=== PATIENT | female | born 1945 | race Caucasian/White ===

== ENCOUNTER 2017-04-08 19:31 | Emergency (ER) | payer OTHER ==
[2017-04-08] MEDS ORDERED: SODIUM CHLORIDE 0.9% 1000ML 1,000 ML IV ONE (19:40)
[2017-04-08 19:43] VITALS: TEMP 98.3
[2017-04-08 19:51] LABS: BASOPHILS % (AUTO) 0 % (0-3); EOSINOPHILS % (AUTO) 0 % (0-9); HEMATOCRIT 34 % (35-47); MEAN CORPUSCULAR HGB CONC 32.2 gm/dl (32.0-36.0); MONOCYTES % (AUTO) 2.8 % (0-12); NEUTROPHILS % (AUTO) 94.4 % (37-80)
[2017-04-08 19:53] LABS: MEAN CORPUSCULAR VOLUME 80 fL (81-99)
[2017-04-08 20:16] LABS: ALBUMIN 3.2 gm/dl (3.4-5.0); CALCIUM 8.5 mg/dl (8.5-10.1); POTASSIUM 5.1 mMol/L (3.5-5.1)
[2017-04-08 20:38] VITALS: RESP 20
[2017-04-08 21:32] VITALS: BP 123/58; PULSE 87; O2SAT 96
== END 2017-04-08 21:28 | DRG 392 ==
LOC: ED 19:31
DX: A08.4 Viral intestinal infection, unspecified (principal); J06.9 Acute upper respiratory infection, unspecified
CPT/HCPCS: 71045; 80053; 85025; 87804; 99283

== ENCOUNTER 2017-07-01 18:09 | Observation (INO) | payer OTHER ==
[2017-07-01 19:08] LABS: BASOPHILS % (AUTO) 1 % (0-3); EOSINOPHILS % (AUTO) 0 % (0-9); HEMATOCRIT 31 % (35-47); HEMOGLOBIN 9.9 gm/dl (12.0-15.5); LYMPHOCYTES % (AUTO) 5.41 % (10-50); MEAN CORPUSCULAR HEMOGLOBIN 25.2 pg (27.0-32.0); MEAN CORPUSCULAR HGB CONC 31.8 gm/dl (32.0-36.0); MONOCYTES % (AUTO) 7.5 % (0-12); NEUTROPHILS % (AUTO) 86.5 % (37-80)
[2017-07-01 19:15] LABS: ALBUMIN 3.5 gm/dl (3.4-5.0); ALKALINE PHOSPHATASE 61 IU/L (46-116); ALT 17 IU/L (14-63); AST 20 IU/L (15-37); BILIRUBIN,TOTAL 0.6 mg/dl (0.2-1.0); BLOOD UREA NITROGEN 24 mg/dl (7-18); CALCIUM 8.4 mg/dl (8.5-10.1); CARBON DIOXIDE 29.6 mEq/L (21-32); CHLORIDE 98 mMol/L (98-107); CREATININE 1.51 mg/dl (0.60-1.00); GLOM FILT RATE 34 mL/min (>60); GLUCOSE 137 mg/dl (74-106); POTASSIUM 4.3 mMol/L (3.5-5.1); SODIUM 136 mMol/L (136-145); TOTAL PROTEIN 7.4 gm/dl (6.4-8.2); TROP I < 0.017 ng/ml (0.000-0.056)
[2017-07-01 19:25] LABS: MEAN CORPUSCULAR VOLUME 79 fL (81-99)
[2017-07-01 20:03] LABS: APPEARANCE,URINE Slightly Cloudy; BILIRUBIN,URINE NEGATIVE (NEGATIVE); COLOR,URINE Yellow; GLUCOSE, URINE (UA) NEGATIVE (NEGATIVE); KETONES,URINE TRACE (NEGATIVE); LEUKOCYTE ESTERASE ,URINE NEGATIVE (NEGATIVE); NITRATE,URINE NEGATIVE (NEGATIVE); OCCULT BLOOD,URINE NEGATIVE (NEG-TRACE); PH,URINE 5.5; UROBILINOGEN,URINE 0.2 (0.2-1.0 EU)
[2017-07-01 20:16] LABS: BACTERIA 1+ (< 1+); CRYSTALS NEGATIVE (0-3 AVE/HPF); RBC,URINE 0-1 (0-3AV/HPF)
[2017-07-01] MEDS ORDERED: SODIUM CHLORIDE 0.9% 500 ML 500 ML IV ONE (20:28)
[2017-07-01] MEDS ORDERED: SOLUMEDROL 125 MG/2 ML 125 MG/2 ML PDS IV ONE (20:49)
[2017-07-01] MEDS ORDERED: AZITHROMYCIN 500 MG PDS 500 MG in SODIUM CHLORIDE 0.9% 500 ML 500 ML IV ONE (20:49)
[2017-07-01] MEDS: SODIUM CHLORIDE 0.9% 1000ML 1,000 ML IV SCH (20:55)
[2017-07-01] MEDS ORDERED: SOLUMEDROL 125 MG/2 ML 125 MG/2 ML PDS ONE (20:56)
[2017-07-01] MEDS ORDERED: AZITHROMYCIN 500 MG PDS IV ONE (20:56)
[2017-07-01] MEDS ORDERED: ACETAMINOPHEN 500 MG 500 MG TAB PO PRN (21:35)
[2017-07-01] MEDS ORDERED: ALBUTEROL NEB SOL 2.5MG/3ML 1 VIAL SOL NEB PRN (21:39)
[2017-07-02] MEDS ORDERED: AMOXIL/CLAVULANATE 400/5 ML PDR ONE (00:35)
[2017-07-02] MEDS: ACETAMINOPHEN 500 MG 500 MG TAB PO SCH ×2 (00:53→20:13)
[2017-07-02] MEDS: BUSPIRONE HCL 5 MG TAB PO SCH ×4 (00:54→20:11)
[2017-07-02] MEDS: AUGMENTIN(FRIDGE) 400 MG/5 ML PO SCH ×3 (00:54→22:53)
[2017-07-02] MEDS: SODIUM CHLORIDE 0.9% 1000ML 500 ML IV SCH (02:13)
[2017-07-02] MEDS: SODIUM CHLORIDE 0.9% 1000ML 1,000 ML IV SCH ×3 (03:49→20:47)
[2017-07-02] MEDS ORDERED: VITAMIN D3 PO SCH (09:00)
[2017-07-02] MEDS ORDERED: METFORMIN HYDROCHLORIDE 500 MG TAB PO SCH ×2 (09:00→18:00)
[2017-07-02] MEDS ORDERED: AMOXIL/CLAVULANATE 875/125 TAB PO SCH (09:00)
[2017-07-02] MEDS ORDERED: TIOTROPIUM BROMIDE 18 MCG CAP INH SCH (09:00)
[2017-07-02] MEDS ORDERED: CHOLECALCIFEROL 2000 UNIT PO SCH (09:00)
[2017-07-02] MEDS ORDERED: CALCIUM CARBONATE PO SCH (09:00)
[2017-07-02] MEDS ORDERED: FLUTICASONE IH SCH (09:00)
[2017-07-02] MEDS ORDERED: SALMETEROL IH SCH (09:00)
[2017-07-02] MEDS ORDERED: ASPIRIN EC 81 MG PO SCH (09:00)
[2017-07-02] MEDS ORDERED: LISINOPRIL 5 MG TAB PO SCH (09:00)
[2017-07-02] MEDS ORDERED: [UNRECOGNIZED DRUG - OTHER] PO SCH (09:00)
[2017-07-02] MEDS: SOLUMEDROL 125 MG/2 ML 125 MG/2 ML PDS IV SCH ×3 (09:25→20:08)
[2017-07-02] MEDS: SALMETEROL IH SCH ×2 (10:10→22:56)
[2017-07-02] MEDS: FLUTICASONE IH SCH ×2 (10:10→22:56)
[2017-07-02] MEDS: MEMANTINE HYDROCHLORIDE 10 MG TAB PO SCH ×3 (12:21→20:12)
[2017-07-02] MEDS: [UNRECOGNIZED DRUG - OTHER] PO SCH ×3 (12:22→20:12)
[2017-07-02] MEDS ORDERED: LORAZEPAM 2 MG/ML SOL IV ONE (18:03)
[2017-07-02 20:59] VITALS: RESP 20
[2017-07-02] MEDS ORDERED: ATORVASTATIN 10 MG TAB PO SCH (21:00)
[2017-07-02 23:45] VITALS: BP 136/61; PULSE 85; TEMP 98.5
[2017-07-03] MEDS: SODIUM CHLORIDE 0.9% 1000ML 1,000 ML IV SCH ×2 (00:39→06:24)
[2017-07-03] MEDS: SOLUMEDROL 125 MG/2 ML 125 MG/2 ML PDS IV SCH (02:04)
[2017-07-03 04:47] VITALS: O2SAT 98
== END 2017-07-03 09:50 | DRG 192 ==
LOC: ED 18:09 → ACUTE CARE 21:23
PROVIDERS: ADMIT Family Medicine; ATTEND Family Medicine
DX: J44.1 Chronic obstructive pulmonary disease with (acute) exacerbation (principal); G30.9 Alzheimer's disease, unspecified; E86.0 Dehydration; E11.9 Type 2 diabetes mellitus without complications; F02.80 Dementia in other diseases classified elsewhere, unspecified severity, without behavioral disturbance, psychotic disturbance, mood disturbance, and anxiety; Z79.84 Long term (current) use of oral hypoglycemic drugs
CPT/HCPCS: 36415; 71045; 80053; 81001; 82962; 84484; 85025; 94640; 94762; 96365; 96374; 99070; 99218; 99291; J0456; J2060; J2930; J7613; A9270-GY